=== PATIENT | male | born 1960 | race Caucasian/White ===

== ENCOUNTER 2017-11-07 08:43 | Day surgery (SDC) | payer OTHER ==
[2017-11-01 09:55] LABS: BASOPHILS % (AUTO) 0.9 % (0.0-2.0); EOSINOPHILS % (AUTO) 3.1 % (1.0-6.0); HEMATOCRIT 46.1 % (41-53); HEMOGLOBIN 16.2 g/dL (13.5-17.5); LYMPHOCYTES # (AUTO) 2.5 K/uL (1.0-4.8); LYMPHOCYTES % (AUTO) 33.7 % (22.0-44.0); MEAN CORPUSCULAR HEMOGLOBIN 30.9 pg (26.0-34.0); MEAN CORPUSCULAR HGB CONC 35.3 G/dL (31.0-37.0); MEAN CORPUSCULAR VOLUME 88 fL (80-100); MONOCYTES # (AUTO) 0.5 K/uL (0.1-1.0); MONOCYTES % (AUTO) 5.9 % (2.0-9.0); NEUTROPHILS # (AUTO) 4.3 K/uL (1.8-7.7); NEUTROPHILS % (AUTO) 56.4 % (40.0-70.0); PLATELET COUNT (AUTO) 219 K/uL (150-450); RED BLOOD CELL COUNT(AUTO) 5.26 MIL/uL (4.50-5.90)
[2017-11-01 10:11] LABS: ANION GAP 8 mmol/L (8-16); CALCIUM, TOTAL 9.1 mg/dL (8.8-10.5); CARBON DIOXIDE 29 mmol/L (22-29); CHLORIDE 104 mmol/L (98-107); CREATININE 0.94 mg/dL (0.60-1.30); GLOMERULAR FILTR. RATE CALC > 60 mL/min (>60); GLUCOSE,RANDOM 110 mg/dL (70-110); POTASSIUM 4.4 mmol/L (3.5-5.1); SODIUM SERUM 141 mmol/L (136-145); UREA NITROGEN, BLOOD 13 mg/dL (7-18)
[~2017-11-07] VITALS: Ht 160 cm; Wt 90.0 kg
[~2017-11-07 08:43] MED LIST: ASPI81 PO; BUPIVACAINE HCL/PF 0.5% 30 ML VIAL ONE; CARV6 PO; CeFAZolin 2 GM/DEXTROSE 50 ML IV ONE; GUM MASTIC/STORAX/MSAL/ALCOHOL LIQUID 0.67 ML VIAL TP ONE; LIDOCAINE HCL 2%/EPI 1:200,000/PF 20 ML VIAL ONE; NAPR-58 PO
[2017-11-07] MEDS ORDERED: METOCLOPRAMIDE HCL 5 MG/ML 2 ML VIAL IVP ONE (08:44)
[2017-11-07] MEDS ORDERED: GLYCOPYRROLATE 0.2 MG/ML VIAL IM ONE (08:44)
[2017-11-07] MEDS ORDERED: ROCURONIUM BROMIDE 10 MG/ML 5 ML VIAL IVP ONE (08:44)
[2017-11-07] MEDS ORDERED: PROPOFOL 1% 20 ML VIAL IVP ONE (08:44)
[2017-11-07] MEDS ORDERED: LIDOCAINE HCL/PF 2% 5 ML VIAL INJ ONE (08:44)
[2017-11-07] MEDS ORDERED: ONDANSETRON HCL 4 MG/2 ML VIAL IVP ONE (08:44)
[2017-11-07] MEDS ORDERED: SUCCINYLCHOLINE CHLORIDE 20 MG/ML 10 ML VIAL IVP ONE (08:44)
[2017-11-07] MEDS ORDERED: CeFAZolin 2 GM/DEXTROSE 50 ML IV ONE (08:59)
[2017-11-07] MEDS ORDERED: RINGERS SOLUTION,LACTATED 1,000 ML IV ONE ×2 (08:59→10:30)
[2017-11-07] MEDS ORDERED: HYDROmorphone 2 MG/ML SYRINGE IVP PRN (11:15)
[2017-11-07] MEDS ORDERED: MEPERIDINE-PF 25 MG/ML SYRINGE IVP PRN (11:15)
[2017-11-07] MEDS ORDERED: OXYGEN THERAPY IH SCH (11:15)
[2017-11-07] MEDS ORDERED: FentaNYL CITRATE-PF 100 MCG/2 ML VIAL IVP PRN (11:15)
[2017-11-07] MEDS ORDERED: IBUPROFEN 600 MG TABLET PO PRN (11:45)
[2017-11-07] MEDS ORDERED: HYDROCODONE/ACETAMINOPHEN 5-325 MG TABLET PO PRN (11:45)
[2017-11-07] MEDS ORDERED: ACETAMINOPHEN 500 MG TABLET PO PRN (11:45)
[2017-11-07] MEDS ORDERED: FentaNYL CITRATE-PF 100 MCG/2 ML VIAL IVP ONE (12:00)
[2017-11-07] MEDS ORDERED: MIDAZOLAM HCL 2 MG/2 ML VIAL IVP ONE (12:00)
== END 2017-11-07 14:00 | disposition home or self-care (01) ==
LOC: SURGERY 08:43
PROVIDERS: ATTEND Surgery
DX: K42.0 Umbilical hernia with obstruction, without gangrene (principal); I48.91 Unspecified atrial fibrillation; E66.9 Obesity, unspecified; G47.33 Obstructive sleep apnea (adult) (pediatric); I10 Essential (primary) hypertension; Z79.82 Long term (current) use of aspirin; Z79.899 Other long term (current) drug therapy; Z68.35 Body mass index [BMI] 35.0-35.9, adult
CPT/HCPCS: 36415; 49587; 80048; 85025; 93005; J0330; J0690 ×2; J2250; J2405; J2704; J2765; J3010; J3490 ×4; J7120